=== PATIENT | female | born 1945 | race Caucasian/White ===

== ENCOUNTER 2023-10-13 18:21 | Emergency (ER) | payer MEDICARE ==
[2023-10-13] MEDS ORDERED: Acetaminophen 500 MG TAB ONE (20:21)
== END 2023-10-13 21:20 | disposition home or self-care (01) ==
LOC: ERS 18:21
DX: U07.1 COVID-19 (principal); I10 Essential (primary) hypertension
CPT/HCPCS: 99283

== ENCOUNTER 2023-10-31 09:41 | Outpatient (CLI) | payer MEDICARE | END 2023-10-31 09:42 | disposition home or self-care (01) | LOC: BICMAMMO 09:41 | PROVIDERS: ATTEND Internal Medicine | DX: M81.0 Age-related osteoporosis without current pathological fracture (principal); T38.6X5A Adverse effect of antigonadotrophins, antiestrogens, antiandrogens, not elsewhere classified, initial encounter | CPT/HCPCS: 77080 ==

== ENCOUNTER 2024-08-05 13:42 | Outpatient (CLI) | payer MEDICARE | END 2024-08-05 13:43 | disposition home or self-care (01) | LOC: BICMAMMO 13:42 | PROVIDERS: ATTEND Surgery | DX: Z08 Encounter for follow-up examination after completed treatment for malignant neoplasm (principal); Z85.3 Personal history of malignant neoplasm of breast; Z91.89 Other specified personal risk factors, not elsewhere classified | CPT/HCPCS: 77065; G0279 ==